=== PATIENT | female | born 1990 | race African-American/Black ===

== ENCOUNTER 2019-10-06 02:42 | Emergency (ER) | payer SELFPAY ==
[~2019-10-06] VITALS: Ht 160 cm; Wt 64.0 kg
[2019-10-06] MEDS ORDERED: CEFTRIAXONE SODIUM 250 MG/VIAL IM ONE (03:15)
[2019-10-06] MEDS ORDERED: AZITHROMYCIN 500 MG TABLET PO ONE (03:15)
[2019-10-06 03:20] VITALS: BP 113/77
== END 2019-10-06 03:47 | disposition home or self-care (01) ==
LOC: ER 02:42
DX: Z20.2 Contact with and (suspected) exposure to infections with a predominantly sexual mode of transmission (principal)
CPT/HCPCS: 96372; 99283; J0696